=== PATIENT | female | born 1985 ===

== ENCOUNTER → 2019-03-18 | Outpatient (CLI) | payer OTHER ==
[~2019-03-18] MED LIST: CEPH500 PO; Pyridium200 MG PO
== END | disposition home or self-care (01) ==
LOC: PLD 07:41 → LAB SHORT 07:41
DX: B08.1 Molluscum contagiosum (principal)
CPT/HCPCS: 88305

== ENCOUNTER → 2019-11-15 | Outpatient (CLI) | payer OTHER | END | disposition home or self-care (01) | LOC: LAB 16:20 → LAB SHORT 16:20 | DX: Z34.93 Encounter for supervision of normal pregnancy, unspecified, third trimester (principal) | CPT/HCPCS: 87081; 87653 ==

== ENCOUNTER 2019-12-02 14:42 | Inpatient (IN) | payer OTHER ==
[~2019-12-02] VITALS: Ht 162.6 cm; Wt 83.9 kg
[~2019-12-02 14:42] MED LIST changes: +PRENATAL TABLE1 EAC2 PO
[2019-12-05 06:03] LABS: BASOPHILS ABSOLUTE AUTO 0.03 K/mm3 (0.00-0.23); BASOPHILS PERCENT AUTO 0 % (0-2); EOSINOPHILS ABSOLUTE AUTO 0.03 K/mm3 (0.00-0.68); EOSINOPHILS PERCENT AUTO 0 % (0-6); Hemoglobin 13.2 g/dL (11.5-16.0); IMMATURE GRAN ABSOLUTE AUTO 0.04 K/mm3 (0.00-0.10); IMMATURE GRAN PERCENT AUTO 1 % (0-1); LYMPHOCYTES ABSOLUTE AUTO 1.85 K/mm3 (0.84-5.20); LYMPHOCYTES PERCENT AUTO 23 % (21-46); MONOCYTES ABSOLUTE AUTO 0.59 K/mm3 (0.16-1.47); MONOCYTES PERCENT AUTO 8 % (4-13); Mean Corpuscular HGB Conc 33.8 g/dL (31.5-36.5); Mean Corpuscular Volume 92 fL (80-100); Mean Platelet Volume 9.4 fL (9.1-12.4); NEUTROPHILS ABSOLUTE AUTO 5.36 K/mm3 (1.96-9.15); NEUTROPHILS PERCENT AUTO 68 % (41-73); Platelet Count 198 K/mm3 (150-400); RDW Coefficient Variation 15.7 % (11.7-14.2); RDW Standard Deviation 52.4 fL (35.1-46.3); Red Blood Cell Count 4.26 M/mm3 (3.80-5.20)
--- NOTE | 2019-12-05 08:20 | NUR ---
12/05/19 0820 Gerri Alva DELIVERY OF VIABLE FEMALE INFANT AT 0748 WEIGHT 2895 GMS, APGARS 9/9 PLACENTA DELIVERED COMPLETE BILATERAL SALPHINECTOMY DONE. RIGHT AND LEFT FALLOPIAN TUBE SEGEMENTS SENT TO PATHOLOGY, ORDERS ENTERED ARTISTA LOT NUMBER [id number] USED IN PROCEDURE
--- NOTE | 2019-12-05 11:30 | NUR ---
report given to Isidra Ramirez RN
--- NOTE | 2019-12-05 13:07 | NUR ---
resume pt care
--- NOTE | 2019-12-05 13:08 | NUR ---
arian care done. ice pack to abd per pt request. pt reports pain 4/10 and tolerable. nb to breast. pt diego well
[2019-12-05] MEDS ORDERED: HYDR1TAB94 PO (15:41)
[2019-12-05] MEDS ORDERED: IBUP800 (15:41)
[2019-12-05] MEDS ORDERED: DOCU100 PO (15:41)
--- NOTE | 2019-12-05 17:31 | NUR ---
LOCHIA SCANT, SAMI CARE DONE. PT MOVING WELL IN BED. \
[2019-12-06 06:03] LABS: Hematocrit 33.5 % (33.0-51.0); Hemoglobin 11.2 g/dL (11.5-16.0); Mean Corpuscular HGB 31.5 pg (26.0-34.0); Mean Corpuscular HGB Conc 33.4 g/dL (31.5-36.5); Mean Corpuscular Volume 94 fL (80-100); Mean Platelet Volume 9.7 fL (9.1-12.4); Platelet Count 155 K/mm3 (150-400); RDW Coefficient Variation 15.7 % (11.7-14.2); RDW Standard Deviation 54.9 fL (35.1-46.3); Red Blood Cell Count 3.56 M/mm3 (3.80-5.20); White Blood Cell Count 10.76 K/mm3 (4.00-11.30)
--- NOTE | 2019-12-06 06:55 | NUR ---
0630 up to shower, tolerated very well. voided in shower, dressing removed, incios with steristrips intact, no drainage noted
--- NOTE | 2019-12-06 09:55 | NUR ---
Some spots of red blood observed on steristrips. Will change when pt more comfortable with pain medication and continue to observe.
--- NOTE | 2019-12-06 19:05 | NUR ---
No acute changes t/o shift. Will report to oncoming RN.
--- NOTE | 2019-12-07 13:32 | NUR ---
1300 DISCHARGE TO HOME WITH NB, PT AMBULATED OUT TO CAR, SO CARRIED NB IN CARSEAT
== END 2019-12-07 12:55 | disposition home or self-care (01) | DRG 785 ==
LOC: BC 12-05 05:38
PROVIDERS: ADMIT Obstetrics & Gynecology
PROC: 10D00Z1 Extraction of Products of Conception, Low, Open Approach (ICD-10-PCS; principal; 2019-12-05 07:30)
PROC: 0UT70ZZ Resection of Bilateral Fallopian Tubes, Open Approach (ICD-10-PCS; 2019-12-05 07:30)
DX: O34.211 Maternal care for low transverse scar from previous cesarean delivery (principal); Z3A.38 38 weeks gestation of pregnancy; Z37.0 Single live birth; Z30.2 Encounter for sterilization
CPT/HCPCS: 36415; 85025; 85027; 86850; 86900; 86901; 88302; A9270-GY; J0690; J1100; J1885; J2370; J2405; J2590; J2765; J7120

== ENCOUNTER → 2022-09-09 | Outpatient (CLI) | payer OTHER ==
[~2022-09-09] MED LIST changes: +DOCU100 PO; +HYDR1TAB94 PO; +IBUP800
[2022-09-11 04:10] LABS: CHLAMYDIA TRACHOMATIS, NAA Negative (Negative)
== END | disposition home or self-care (01) ==
LOC: LAB 14:45 → LAB SHORT 14:45
PROVIDERS: Physician Assistant
DX: Z01.419 Encounter for gynecological examination (general) (routine) without abnormal findings (principal); Z11.3 Encounter for screening for infections with a predominantly sexual mode of transmission
CPT/HCPCS: 87491; 87591